=== PATIENT | male | born 1950 | race Caucasian/White ===

== ENCOUNTER 2022-02-23 05:55 | Emergency (ER) | payer MEDICARE ==
[~2022-02-23] VITALS: Ht 180 cm; Wt 99.4 kg
[~2022-02-23 05:55] MED LIST: ACHD5005 PO; AMLO-250 PO; ASPI-999 PO; CIPR-225 PO; HYDR-3875 PO; HYDR-4196 PO; LEVO112T55 PO; LISI20TA26 PO; METF-865 PO; NITR-65 PO; TMSL.4C PO
--- NOTE | 2022-02-23 06:40 | ED Abdominal Pain ---
General Chief Complaint: - Reproductive Stated Complaint: BACK PAIN Nursing Triage Note: patient complaint of left side pain. patient reports hx of kidney stones 6 yrs ago. Source of Information: Patient Exam Limitations: No Limitations History of Present Illness Date Seen by Provider: Feb 23, 2022 Time Seen by Provider: 06:30 Initial Comments Patient is a 71-year-old male who presents to the emergency room with a chief complaint of left flank pain. Patient states that he woke up at midnight with the pain, at its worst it was a "8". He states he finally got out of a bed at about 230. He took a couple of extra strength Tylenol and has had steady improvement in the pain. At 1 point he felt nauseous and thought he might vomit but did not. No diaphoresis. No radiation of the pain into the lower abdomen, scrotum, down the leg. He states about 6 years ago he had similar symptoms and was diagnosed with a kidney stone. He had seen Dr. Tyson. He does not have routine follow-up with them. He has a history of type 2 diabetes, hypertension hypercholesterolemia. He is not on blood thinners. He denies any trauma. Nothing has made the pain any better or any worse. He denies dysuria urgency or frequency. No black or bloody stools. Last bowel movement was normal, yesterday. Currently rates his pain at a "2 or 3". Declines medication at this time. All other review of systems reviewed and negative except as stated. Timing/Duration: 4-6 Hours Severity/Quality: Sharp Location: LLQ (flank/back) Radiation: No Radiation Activities at Onset: Sleeping Modifying Factors: Improves With Other (tylenol) Associated Symptoms: Back Pain (left flank), Nausea/Vomiting Allergies and Home Medications Allergies Coded Allergies: No Known Drug Allergies (Unverified , 12/01/15) Patient Home Medication List Home Medication List Reviewed: Yes Amlodipine Besylate (Amlodipine Besylate) 5 Mg Tablet, 5 MG PO DAILY, (Reported) Entered as Reported by: NEY RODRIGUEZ on 11/27/15 0508 Hydrocodone Bit/Acetaminophen (Lortab 5 Mg Tablet) 1 Each Tablet, 1 EACH PO Q4H PRN for PAIN, (Reported) Entered as Reported by: BI STRICKLAND on 12/02/15 0934 Hydrocodone/Acetaminophen (Lorcet Plus 7.5-325 mg Tablet) 1 Each Tablet, 1-2 TAB PO Q4H PRN for PAIN Prescribed by: BI STRICKLAND on 12/02/15 1400 Levothyroxine Sodium (Levothyroxine Sodium) 112 Mcg Tablet, 112 MCG PO DAILY, (Reported) Entered as Reported by: NEY RODRIGUEZ on 11/27/15 050 Lisinopril (Lisinopril) 20 Mg Tablet, 40 MG PO DAILY, (Reported) Entered as Reported by: NEY RODRIGUEZ on 11/27/15 050 Metformin HCl (Metformin HCl ER) 500 Mg Tab.er.24h, 500 MG PO DAILY, (Reported) Entered as Reported by: NEY RODRIGUEZ on 11/27/15 050 Nitrofurantoin Monohyd/M-Cryst (Macrobid 100 mg Capsule) 100 Mg Capsule, 1 TAB P O BID Prescribed by: BI STRICKLAND on 12/02/151399 Tamsulosin HCl (Flomax) 0.4 Mg Cap, 0.4 MG PO DAILY Prescribed by: BI STRICKLAND on 12/02/151399 Review of Systems Review of Systems Constitutional: see HPI Respiratory: No Symptoms Reported Cardiovascular: No Symptoms Reported Gastrointestinal: Abdominal Pain (left flank) Genitourinary: No Symptoms Reported Musculoskeletal: no symptoms reported Skin: no symptoms reported All Other Systems Reviewed Negative Unless Noted: Yes Past Dqjkdef-Yovmpg-Ttrkej Hx Patient Social History Tobacco Use?: Yes Seasonal Allergies Seasonal Allergies: No Past Medical History Appendectomy Hypertension Reproductive Disorders: No Sexually Transmitted Disease: No HIV/AIDS: No Kidney Stones Gastroesophageal Reflux Hypothyroidsim, Diabetes, Non-Insulin dep Loss of Vision: Bilateral Hearing Impairment: Denies Adverse Reaction/Blood Tranf: No (N/A) Physical Exam Vital Signs Vital Signs - First Documented 02/23/22 06:18 Temp 36.1 Pulse 61 Resp 20 B/P (MAP) 166/92 (116) Pulse Ox 98 O2 Delivery Room Air Capillary Refill : Less Than 3 Seconds Height/Weight/BMI Height: 5'11.00" Weight: 210lbs. 0.0oz. 95.893389is; 30.00 BMI Method:Stated General Appearance: WD/WN, no apparent distress, other (sitting comfortably on the bed NAD) Respiratory: lungs clear, normal breath sounds, no respiratory distress, no accessory muscle use Cardiovascular: regular rate, rhythm Gastrointestinal: normal bowel sounds, non tender, soft Back: no CVA tenderness Neurologic/Psychiatric: alert, normal mood/affect, oriented x 3 Skin: normal color, warm/dry Progress/Results/Core Measures Results/Orders Lab Results Laboratory Tests Test 02/23/22 06:05 02/23/22 06:12 Range/Units Urine Color YELLOW Urine Clarity CLEAR Urine pH 5.5 5-9 Urine Specific [place] >=1.030 1.016-1.022 Urine Protein 1+ H NEGATIVE Urine Glucose (UA) 3+ H NEGATIVE Urine Ketones NEGATIVE NEGATIVE Urine Nitrite NEGATIVE NEGATIVE Urine Bilirubin NEGATIVE NEGATIVE Urine Urobilinogen 0.2 < = 1.0 MG/DL Urine Leukocyte Esterase NEGATIVE NEGATIVE Urine RBC (Auto) 3+ H NEGATIVE Urine RBC 50-100 H /HPF Urine WBC NONE /HPF Urine Squamous Epithelial Cells NONE /HPF Urine Crystals NONE /LPF Urine Bacteria NEGATIVE /HPF Urine Casts NONE /LPF Urine Mucus NEGATIVE /LPF Urine Culture Indicated NO Sodium Level 137 135-145 MMOL/L Potassium Level 3.9 3.6-5.0 MMOL/L Chloride Level 104 98-107 MMOL/L Carbon Dioxide Level 19 L 21-32 MMOL/L Anion Gap 14 5-14 MMOL/L Blood Urea Nitrogen 17 7-18 MG/DL Creatinine 1.64 H 0.60-1.30 MG/DL Estimat Glomerular Filtration Rate 45 BUN/Creatinine Ratio 10 Glucose Level 147 H 70-105 MG/DL Calcium Level 10.2 H 8.5-10.1 MG/DL My Orders Orders - SPENCER ARCHER MD Ed Iv/Invasive Line Start (02/23/22 06:37) Basic Metabolic Panel (02/23/22 06:37) Ua Culture If Indicated (02/23/22 06:37) Abdomen/Kub 1view (02/23/22 07:09) Ct Abd/Pelvis Wo(Kidney Stone) (02/23/22 07:09) Vital Signs/I&O 02/23/22 06:18 Temp 36.1 Pulse 61 Resp 20 B/P (MAP) 166/92 (116) Pulse Ox 98 O2 Delivery Room Air Blood Pressure Mean: 116 Progress Progress Note : Time: 08:12 Progress Note Patient seen and evaluated today, 71-year-old with a chief complaint of left flank pain that reminds him of when he had a kidney stone 6 years ago. Patient at the time of presentation rates his pain at a "2 or 3". Evaluation today includes physical exam, basic metabolic panel, urinalysis, KUB and CT renal stone protocol. Patient is not requesting anything at this time for pain or nausea. He has been afebrile. Basic metabolic panel reveals stable renal function as compared to 2016, the last blood work available for review. Urinalysis does show hematuria. The stone is visible on CT as well as KUB, approximately 4 x 7 mm. Mid distal left ureter. Patient has no abdominal tenderness or CVA tenderness. His vital signs are stable. Clinically no concerning findings for sepsis/infected kidney stone. No other acute intra-abdominal pathology concerning such as diverticulitis, bowel obstruction. At the time of reevaluation the patient is comfortable, he states about 15 minutes after I left from my initial eval he became completely pain-free. I advised him of findings and he will follow-up with urology. We will send home with Flomax as well as hydrocodone and some Zofran. I do not believe at this time he needs antibiotics. Return precautions provided. All questions sought and answered. Diagnostic Imaging Diagonstic Imaging: CT Comments [facility] [place] NAME: DENISE BARRAZA [facility] REC#: [id number] PT STATUS: REG ER : 1950 PHYSICIAN: SPENCER ARCHER MD ADMIT DATE: 02/23/22/ER Draft Date of Exam:02/23/22 CT ABD/PELVIS WO(KIDNEY STONE) PROCEDURE: CT urinary tract, rule out kidney stone. TECHNIQUE: Multiple contiguous axial images were obtained through the abdomen and pelvis without the use of intravenous contrast. Auto Exposure Controls were utilized during the CT exam to meet ALARA standards for radiation dose reduction. INDICATION: Flank pain, renal stones. COMPARISON: 11/27/2015 FINDINGS: The visualized lung bases are clear. Small hiatal hernia. Diffusely decreased density of the liver is noted. The unenhanced liver is otherwise unremarkable. The spleen is unremarkable. The adrenal glands are unremarkable. The pancreas is unremarkable. A few gallstones are identified, including within the neck of the gallbladder. The gallbladder is borderline dilated measuring near 10 cm. No significant inflammatory stranding about the gallbladder. The unenhanced right kidney and right ureter are unremarkable. A 0.7 cm calculus is identified within the mid to distal left ureter. This is associated with mild left hydroureter and minimal left hydronephrosis. Minimal left perinephric fat stranding is also present. Mild vascular calcifications without aneurysmal dilatation of the abdominal aorta. The urinary bladder is unremarkable. Mild prostatic calcifications. No bowel obstruction or pneumatosis. No significant adenopathy, free air, or free fluid within the abdomen or pelvis. Scattered osseous degenerative changes without acute osseous abnormality. IMPRESSION: 0.7 cm calculus within the mid to distal left ureter resulting in minimal mild left hydroureteronephrosis with minimal left perinephric fat stranding. Cholelithiasis with the gallbladder being borderline distended. If there is clinical concern for acute cholecystitis, then a right upper quadrant ultrasound be recommended. Fatty infiltration of the liver. Small hiatal hernia. Dictated on workstation # [id number] Dict: 02/23/22 0748 Trans: 02/23/22 0803 [id number] Interpreted by: JASMINA KHALIL MD Electronically signed by: Departure Impression Primary Impression: Left ureteral stone Disposition: 01 HOME, SELF-CARE Condition: Improved Departure-Patient Inst. Decision time for Depature: 08:15 Referrals: PATRICIA CORREIA DO (PCP/Family) Primary Care Physician NAY TYSON MD Patient Instructions: Kidney Stone, Adult ED Add. Discharge Instructions: Drink lots of fluids to stay well-hydrated and flush out the stone Take Flomax 0.4 mg every night for the next 2 weeks. You can take [id number] Tylenol as you did last night 2 extra strength tablets every 6 hours as needed for pain. I have also prescribed you some hydrocodone 5/325 mg you can take 1 hydrocodone and 1 additional extra strength Tylenol at night for more severe pain if needed. If you have to take hydrocodone routinely please also take stool softeners daily. Do not drive and take hydrocodone. I have also sent a prescription for some nausea medication, ondansetron 4 mg orally dissolving tablets. You can have 1 every 6-8 hours as needed for nausea. If you develop more intense pain unrelieved by the prescribed pain medicines, fever, vomiting or burning with urination please return to the emergency room for reevaluation. Please call Dr. Tyson's office or other urologist of your choice in [place]/surrounding area for follow-up. Scripts Hydrocodone/Acetaminophen (Hydrocodone-Acetamin 5-325 mg) 5 Mg-325 Mg Tablet 1 TAB PO Q6H PRN for PAIN-MODERATE (5-7), #12 TAB Prov: SPENCER ARCHER MD 02/23/22 Ondansetron (Ondansetron Odt) 4 Mg Tab.rapdis 4 MG SL Q8H PRN for NAUSEA/VOMITING, #15 TAB Prov: SPENCER ARCHER MD 02/23/22 Tamsulosin HCl (Flomax) 0.4 Mg Cap 0.4 MG PO HS for 14 Days, #14 CAP Prov: SPENCER ARCHER MD 02/23/22 Copy Copies To 1: NAY TYSON MD Copies To 2: PATRICIA CORREIA KATHRYN M MD Feb 23, 2022 06:40
[2022-02-23 06:54] LABS: BILIRUBIN,URINE NEGATIVE (NEGATIVE); CLARITY,URINE CLEAR; COLOR,URINE YELLOW; GLUCOSE, URINE (UA) 3+ (NEGATIVE); KETONES,URINE NEGATIVE (NEGATIVE); LEUKOCYTE ESTERASE ,URINE NEGATIVE (NEGATIVE); NITRITE,URINE NEGATIVE (NEGATIVE); PH,URINE 5.5 (5-9); PROTEIN,URINE 1+ (NEGATIVE)
[2022-02-23 06:57] LABS: POTASSIUM 3.9 MMOL/L (3.6-5.0)
[2022-02-23 06:58] LABS: CALCIUM 10.2 MG/DL (8.5-10.1)
[2022-02-23 07:03] LABS: CREATININE SERUM 1.64 MG/DL (0.60-1.30)
[2022-02-23 07:06] LABS: BACTERIA,URINE NEGATIVE /HPF; RBC,URINE 50-100 /HPF
--- NOTE | 2022-02-23 08:03 | Diagnostic Imaging Report ---
PROCEDURE: CT urinary tract, rule out kidney stone. TECHNIQUE: Multiple contiguous axial images were obtained through the abdomen and pelvis without the use of intravenous contrast. Auto Exposure Controls were utilized during the CT exam to meet ALARA standards for radiation dose reduction. INDICATION: Flank pain, renal stones. COMPARISON: 11/27/2015 FINDINGS: The visualized lung bases are clear. Small hiatal hernia. Diffusely decreased density of the liver is noted. The unenhanced liver is otherwise unremarkable. The spleen is unremarkable. The adrenal glands are unremarkable. The pancreas is unremarkable. A few gallstones are identified, including within the neck of the gallbladder. The gallbladder is borderline dilated measuring near 10 cm. No significant inflammatory stranding about the gallbladder. The unenhanced right kidney and right ureter are unremarkable. A 0.7 cm calculus is identified within the mid to distal left ureter. This is associated with mild left hydroureter and minimal left hydronephrosis. Minimal left perinephric fat stranding is also present. Mild vascular calcifications without aneurysmal dilatation of the abdominal aorta. The urinary bladder is unremarkable. Mild prostatic calcifications. No bowel obstruction or pneumatosis. No significant adenopathy, free air, or free fluid within the abdomen or pelvis. Scattered osseous degenerative changes without acute osseous abnormality. IMPRESSION: 0.7 cm calculus within the mid to distal left ureter resulting in minimal mild left hydroureteronephrosis with minimal left perinephric fat stranding. Cholelithiasis with the gallbladder being borderline distended. If there is clinical concern for acute cholecystitis, then a right upper quadrant ultrasound be recommended. Fatty infiltration of the liver. Small hiatal hernia. Dictated by: Dictated on workstation # [id number]
[2022-02-23] MEDS ORDERED: ACHD5005 PO (08:18)
[2022-02-23] MEDS ORDERED: ONDA4TAB11 SL (08:18)
[2022-02-23] MEDS ORDERED: TMSL.4C PO (08:18)
[2022-02-23 08:27] VITALS: BP 152/98
--- NOTE | 2022-02-23 08:53 | Diagnostic Imaging Report ---
EXAMINATION: Abdomen 1 view HISTORY: left flank pain COMPARISON: None FINDINGS: There is a moderate amount of gas and stool throughout the colon. Nonobstructive bowel gas pattern. No radiopaque foreign body. The osseous structures are intact. IMPRESSION: Moderate stool burden without other acute abnormality in the abdomen. Dictated by: Dictated on workstation # [id number]
== END 2022-02-23 08:26 | disposition home or self-care (01) ==
LOC: EDUNIT# 05:55 → ER 05:56
DX: N13.2 Hydronephrosis with renal and ureteral calculous obstruction (principal); Z28.310 Unvaccinated for COVID-19
CPT/HCPCS: 36415; 74018; 74176; 80048; 81000

== ENCOUNTER 2022-04-26 08:31 | Outpatient (CLI) | payer MEDICARE ==
[~2022-04-26 08:31] MED LIST changes: +ONDA4TAB11 SL
== END 2022-04-26 08:50 ==
LOC: SLEEP 08:31
PROVIDERS: ATTEND Family Medicine
DX: G47.33 Obstructive sleep apnea (adult) (pediatric) (principal); I10 Essential (primary) hypertension
CPT/HCPCS: G0399

== ENCOUNTER 2023-02-21 10:34 | Outpatient (RCR) | payer MEDICARE ==
[2023-02-15 15:00] LABS: BASOPHILS # (AUTO) 0.1 10^3/uL (0.0-0.1); BASOPHILS % (AUTO) 1 % (0-10); EOSINOPHILS # (AUTO) 0.2 10^3/uL (0.0-0.3); EOSINOPHILS % (AUTO) 2 % (0-10); HEMATOCRIT 55 % (40-54); HEMOGLOBIN 18.9 g/dL (13.3-17.7); LYMPHOCYTES # (AUTO) 2.9 10^3/uL (1.0-4.0); LYMPHOCYTES % (AUTO) 34 % (12-44); MEAN CORPUSCULAR HEMOGLOBIN 31 pg (25-34); MEAN CORPUSCULAR HGB CONC 34 g/dL (32-36); MEAN CORPUSCULAR VOLUME 89 fL (80-99); MEAN PLATELET VOLUME 9.7 fL (9.0-12.2); MONOCYTES # (AUTO) 0.7 10^3/uL (0.0-1.0); MONOCYTES % (AUTO) 8 % (0-12); NEUTROPHILS # (AUTO) 4.5 10^3/uL (1.8-7.8); NEUTROPHILS % (AUTO) 54 % (42-75); PLATELET COUNT 277 10^3/uL (130-400); WHITE BLOOD COUNT 8.3 10^3/uL (4.3-11.0)
== END 2023-03-16 | disposition home or self-care (01) ==
LOC: ONC 10:34
PROVIDERS: ATTEND Internal Medicine Hematology & Oncology
DX: D75.1 Secondary polycythemia (principal)
CPT/HCPCS: 81270; 82668; 85025; G0463; 99204